=== PATIENT | male | born 1955 | race Caucasian/White ===

== ENCOUNTER 2020-02-12 15:53 | Emergency (ER) | payer OTHER, SELFPAY ==
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
[2020-02-12 16:06] VITALS: BP 154/78; PULSE 128; RESP 20; TEMP 36.6; O2SAT 97
[2020-02-12 18:10] VITALS: BP 193/96; PULSE 121; RESP 20; O2SAT 95
== END 2020-02-12 18:12 | disposition home or self-care (01) ==
PROVIDERS: Emergency Provider Emergency Medicine
DX: S40.012A Contusion of left shoulder, initial encounter (principal); T14.8XXA Other injury of unspecified body region, initial encounter; V89.2XXA Person injured in unspecified motor-vehicle accident, traffic, initial encounter
CPT/HCPCS: 71250; 73030; 74176; 99283; 99284